=== PATIENT | female | born 1990 | race American Indian/Alaskan Native ===

== ENCOUNTER 2020-10-16 13:31 | Emergency (ER) | payer SELFPAY ==
[2020-10-16 14:56] VITALS: BP 127/77
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
== END 2020-10-16 17:00 | disposition home or self-care (01) ==
LOC: ED 13:31
DX: S70.01XA Contusion of right hip, initial encounter (principal); Z72.89 Other problems related to lifestyle; V87.7XXA Person injured in collision between other specified motor vehicles (traffic), initial encounter; Y93.89 Activity, other specified; Y92.488 Other paved roadways as the place of occurrence of the external cause; Y99.8 Other external cause status
CPT/HCPCS: 99283